=== PATIENT | male | born 1985 | race Hispanic/Latino ===

== ENCOUNTER 2023-06-07 07:46 | Day surgery (SDC) | payer MEDICAID ==
[2023-06-03 15:30] VITALS: BP 138/79; PULSE 110; RESP 18
[2023-06-03 15:30] LABS: BASOPHILS # (AUTO) 0.05 K/uL (0.00-0.20); BASOPHILS % (AUTO) 0.8 % (0.0-5.0); HEMATOCRIT 40.2 % (42-54); IMMATURE GRANULOCYTE ABSOLUTE 0.02 K/uL (0-1); LYMPHOCYTES # (AUTO) 1.6 K/uL (1.0-4.8); LYMPHOCYTES % (AUTO) 26.1 % (21.0-51.0); MEAN CORPUSCULAR HEMOGLOBIN 23.2 pg (27.0-33.0); MEAN CORPUSCULAR HGB CONC 30.6 g/dL (32.0-36.0); MEAN CORPUSCULAR VOLUME 75.8 fL (79-99); MONOCYTES # (AUTO) 0.4 K/uL (0.1-1.0); NEUTROPHILS # (AUTO) 3.7 K/uL (1.8-7.7); NEUTROPHILS % (AUTO) 60.8 % (40.0-77.0); PLATELET COUNT (AUTO) 267 K/uL (130-400); RED CELL DISTRIBUTION WIDTH 16.2 % (11.0-15.5)
[2023-06-07] VITALS (20 sets, daily range): BP systolic 123–178; BP diastolic 68–113; PULSE 89–117; RESP 8–19
[~2023-06-07] VITALS: Ht 180.3 cm; Wt 116.1 kg
[~2023-06-07 07:46] MED LIST: 0.9%NACL 1000ML 1,000 ML IV SCH; ALPR1TAB7 PO; CEFAZOLIN SODIUM 1 GM VIAL IVPB PRN; ESCI-8 PO; NAPR-1023 PO; ROSU20TA73 PO
[2023-06-07] MEDS ORDERED: LACTATED RINGERS 1000ML 1,000 ML IV ONE (07:58)
[2023-06-07] MEDS ORDERED: CEFAZOLIN SODIUM 2 GM VIAL ONE (07:58)
[2023-06-07 08:40] LABS: CREATININE 0.9 mg/dL (0.5-1.5); POTASSIUM 3.9 mmol/L (3.5-5.1)
[2023-06-07] MEDS ORDERED: BUPIVACAINE/PF 0.5% 30ML VIAL ONE (09:38)
[2023-06-07] MEDS ORDERED: MIDAZOLAM HCL 1 MG/ML 2ML VIAL ONE (10:22)
[2023-06-07] MEDS ORDERED: LIDOCAINE PF 100MG/5ML (2%) SYRINGE 5ML ONE (10:22)
[2023-06-07] MEDS ORDERED: PROPOFOL 10 MG/ML 20ML VIAL IV ONE (10:22)
[2023-06-07] MEDS ORDERED: SUCCINYLCHOLINE CHLORIDE 20 MG/ML 10 ML VIAL ONE (10:22)
[2023-06-07] MEDS ORDERED: ROCURONIUM BROMIDE 10MG/1ML 5ML VL ONE ×2 (10:23→10:49)
[2023-06-07] MEDS ORDERED: FENTANYL CITRATE PF 50 MCG/1 ML 2ML VIAL ONE (10:23)
[2023-06-07] MEDS: CEFAZOLIN SODIUM 3 GM VIAL IVPB ONE (10:30)
[2023-06-07] MEDS: BUPIVACAINE/PF 0.5% 30ML VIAL INJ ONE (11:04)
[2023-06-07] MEDS ORDERED: GLYCOPYRROLATE 0.2 MG/ML 5 ML VIAL ONE (11:06)
[2023-06-07] MEDS ORDERED: NEOSTIGMINE METHYLSULFATE 1MG/ML IV ONE (11:06)
[2023-06-07] MEDS: SUGAMMADEX SODIUM 200 MG/2 ML VIAL IV ONE (11:41)
[2023-06-07] MEDS: LABETALOL 20MG VIAL IV ONE (11:59)
[2023-06-07] MEDS ORDERED: IBUP-1493 PO (12:21)
== END 2023-06-07 13:10 | disposition home or self-care (01) ==
LOC: DAH 07:46
PROVIDERS: ATTEND Surgery
DX: K42.9 Umbilical hernia without obstruction or gangrene (principal); E66.01 Morbid (severe) obesity due to excess calories; F41.9 Anxiety disorder, unspecified; G47.00 Insomnia, unspecified; Z79.899 Other long term (current) drug therapy; Z79.01 Long term (current) use of anticoagulants; Z68.35 Body mass index [BMI] 35.0-35.9, adult
CPT/HCPCS: 36415 ×2; 85025; 49591; 80048; A6260; A4663; A4452; J0690 ×2; J7120; J3010; J0330; J3490 ×6; J2250; J2710; J0665 ×2; A4930 ×2; A4215; A4223; A4213; A4222; A4221; A4600; J2001; J2704